=== PATIENT | female | born 1945 | race Caucasian/White ===

== ENCOUNTER 2017-08-29 11:10 | Outpatient (CLI) | payer OTHER | END 2017-08-29 11:19 | disposition home or self-care (01) | LOC: SONOGRAMA 11:10 | DX: E04.2 Nontoxic multinodular goiter (principal) ==

== ENCOUNTER 2018-10-19 09:38 | Outpatient (CLI) | payer OTHER | END 2018-10-19 13:52 | disposition home or self-care (01) | LOC: SONOGRAMA 09:38 | DX: E04.2 Nontoxic multinodular goiter (principal) ==

== ENCOUNTER → 2024-06-27 09:00 | Outpatient (CLI) | payer OTHER | END | disposition home or self-care (01) | LOC: SONOGRAMA 09:00 | PROVIDERS: ATTEND Pathology Anatomic Pathology & Clinical Pathology | DX: D34 Benign neoplasm of thyroid gland (principal); E07.89 Other specified disorders of thyroid; E04.2 Nontoxic multinodular goiter ==